=== PATIENT | male | born 1950 | race African-American/Black ===

== ENCOUNTER 2016-12-12 05:58 | Day surgery (SDC) | payer MEDICARE, MEDICAID ==
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
[~2016-12-12] VITALS: Ht 175.3 cm; Wt 104.3 kg
[2016-12-12] VITALS (12 sets, daily range): BP systolic 110–169; BP diastolic 68–98
[~2016-12-12 05:58] MED LIST: VENTOLIN HFA18 GM INH
[2016-12-12] MEDS ORDERED: Pred Forte 1% Opth Susp 1ml LEFT EYE SCH (06:00)
[2016-12-12] MEDS: Gatifloxacin Opth Solution 0.5% LEFT EYE SCH ×3 (06:00→06:10)
--- NOTE | 2016-12-12 06:36 | Pre-Procedure Note/Attestation ---
Pre-Procedure Note/Attestation Complete Prior to Procedure Planned Procedure: left Procedure Narrative: PPV, Endolaser, possible scleral buckle, gas-fluid exchange L eye Indications for Procedure Pre-Operative Diagnosis: Retinal detachment L eye Attestation I attest that I discussed the nature of the procedure; its benefits; risks and complications; and alternatives (and the risks and benefits of such alternatives ), prior to the procedure, with the patient (or the patient's legal sales representative facility services). I attest that, if there was a reasonable possibility of needing a blood transfusion, the patient (or the patient's legal sales representative facility services) was given the [facility] standardized written summary, pursuant to the [place] Blood Safety Act ([place] Health and Safety Code # 1645, as amended). I attest that I re-evaluated the patient just prior to the surgery and that there has been no change in the patient's H&P, except as documented below: CHELITA PANIAGUA December 12, 2016 06:36
[2016-12-12] MEDS ORDERED: Flurbiprofen 0.03% Opth Sol 2.5ml ONE (07:11)
[2016-12-12] MEDS ORDERED: Cyclopentolate 1% Opth Sol ONE (07:11)
[2016-12-12] MEDS ORDERED: Gatifloxacin Opth Solution 0.5% ONE (07:11)
[2016-12-12] MEDS ORDERED: Phenylephrine 2.5% Op Soln ONE (07:12)
[2016-12-12] MEDS: Phenylephrine 2.5% Op Soln LEFT EYE SCH ×3 (07:21→07:47)
[2016-12-12] MEDS: Flurbiprofen 0.03% Opth Sol 2.5ml LEFT EYE SCH ×3 (07:21→07:47)
[2016-12-12] MEDS: Cyclopentolate 1% Opth Sol LEFT EYE SCH ×3 (07:21→07:47)
[2016-12-12 08:11] LABS: BASOPHILS % (AUTO) 3.4 % (0.0-2.0); EOSINOPHILS % (AUTO) 7.5 % (0.0-3.0); LYMPHOCYTES % (AUTO) 34.2 % (20.0-45.0); MEAN CORPUSCULAR HEMOGLOBIN 23.7 PG (27.0-31.0); MEAN CORPUSCULAR HGB CONC 30.4 G/DL (32.0-36.0); MEAN CORPUSCULAR VOLUME 78 FL (80-99); MEAN PLATELET VOLUME 11.3 FL (6.5-10.1); MONOCYTES % (AUTO) 10.2 % (1.0-10.0); NEUTROPHILS % (AUTO) 44.7 % (45.0-75.0); PLATELET COUNT 185 K/UL (150-450); RED BLOOD COUNT 5.45 M/UL (4.70-6.10); RED CELL DISTRIBUTION WIDTH 15.6 % (11.6-14.8); WHITE BLOOD COUNT 4.4 K/UL (4.8-10.8)
[2016-12-12 08:17] LABS: ANION GAP 12 (5-15); CALCIUM 9.2 mg/dL (8.6-10.2); CARBON DIOXIDE 27 mEQ/L (20-30); CHLORIDE 102 mEQ/L (98-107); GLOMERULAR FILTRATION RATE > 60 mL/min (>60); HEMOLYSIS 6; POTASSIUM 4.2 mEQ/L (3.4-4.9); SODIUM 141 mEQ/L (135-145)
[2016-12-12] MEDS ORDERED: Lidocaine 2% MPF 5ml Vial INJ ONE (09:39)
[2016-12-12] MEDS ORDERED: Povidone-Iodine 5% opth solution ONE (09:39)
[2016-12-12] MEDS ORDERED: BSS 15ml BTL ONE (09:39)
[2016-12-12] MEDS ORDERED: Dexamethasone 4mg/ml vial ONE (09:39)
[2016-12-12] MEDS ORDERED: Tetracaine 0.5% Opth Soln ONE (09:39)
[2016-12-12] MEDS ORDERED: BSS 500ml btl ONE (09:39)
[2016-12-12] MEDS ORDERED: Bupivacaine 0.75% 30ml vial INJ ONE (09:39)
[2016-12-12] MEDS ORDERED: EPINEPHrine 1mg/1ml Amp ONE (09:39)
[2016-12-12] MEDS ORDERED: Sodium Hyaluronate 10 mg/ml 0.85ml ONE (09:39)
[2016-12-12] MEDS ORDERED: LR 1000ml ONE (10:00)
[2016-12-12] MEDS ORDERED: fentaNYL 100 mcg/2 mL IV ONE (10:00)
[2016-12-12] MEDS ORDERED: Midazolam 2mg/2ml Inj ONE (10:00)
[2016-12-12] MEDS ORDERED: Propofol 10mg/ml 20ml IV ONE (10:00)
[2016-12-12] MEDS ORDERED: Neosporin Oph Soln 5ml Btl ONE (10:13)
--- NOTE | 2016-12-12 10:47 | Anethesia Preoperative Eval ---
Anesthesia Pre-op PMH/ROS General Date of Evaluation: December 12, 2016 Time of Evaluation: 10:00 Anesthesiologist: sydnee ASA Score: ASA 1 Mallampati Score Class I : Soft palate, uvula, fauces, pillars visible Class II: Soft palate, uvula, fauces visible Class III: Soft palate, base of uvula visible Class IV: Only hard plate visible Mallampati Classification: Class I Allergies: Coded Allergies: CHOCOLATE FLAVOR (Verified Allergy, Severe, ASTHMA, 12/12/16) PEANUT (Verified Allergy, Severe, ASTHMA, 12/12/16) LATEX (Verified Allergy, Unknown, rash, 12/09/16) Past Medical History Cardiovascular: Reports: HTN Anesthesia Pre-op Phys. Exam Physician Exam Last Vital Signs Date Time Temp Pulse Resp B/P Pulse Ox O2 Delivery O2 Flow Rate FiO2 12/12/16 07:05 98.2 18 18 139/70 99 Room Air Anesthesia Pre-op A/P Labs Hematology Test 12/12/16 07:45 White Blood Count 4.4 K/UL (4.8-10.8) L Red Blood Count 5.45 M/UL (4.70-6.10) Hemoglobin 12.9 G/DL (14.2-18.0) L Hematocrit 42.6 % (42.0-52.0) Mean Corpuscular Volume 78 FL (80-99) L Mean Corpuscular Hemoglobin 23.7 PG (27.0-31.0) L Mean Corpuscular Hemoglobin Concent 30.4 G/DL (32.0-36.0) L Red Cell Distribution Width 15.6 % (11.6-14.8) H Platelet Count 185 K/UL (150-450) Mean Platelet Volume 11.3 FL (6.5-10.1) H Neutrophils (%) (Auto) 44.7 % (45.0-75.0) L Lymphocytes (%) (Auto) 34.2 % (20.0-45.0) Monocytes (%) (Auto) 10.2 % (1.0-10.0) H Eosinophils (%) (Auto) 7.5 % (0.0-3.0) H Basophils (%) (Auto) 3.4 % (0.0-2.0) H Chemistry Test 12/12/16 07:45 Sodium Level 141 mEQ/L (135-145) Potassium Level 4.2 mEQ/L (3.4-4.9) Chloride Level 102 mEQ/L (98-107) Carbon Dioxide Level 27 mEQ/L (20-30) Anion Gap 12 (5-15) Blood Urea Nitrogen 10 mg/dL (7-23) Creatinine 1.0 mg/dL (0.7-1.2) Estimat Glomerular Filtration Rate > 60 mL/min (>60) Glucose Level 95 mg/dL (74-106) Calcium Level 9.2 mg/dL (8.6-10.2) Mary Beth Jean-Baptiste MD December 12, 2016 10:47
[2016-12-12] MEDS ORDERED: Midazolam 2mg/2ml Inj IVP PRN (11:00)
--- NOTE | 2016-12-12 11:10 | Immediate Post-Op Evaluation ---
Immediate Post-Op Evalulation Immediate Post-Op Evalulation Procedure: Vitrectomy Date of Evaluation: December 12, 2016 Time of Evaluation: 11:10 Nausea: No Vomiting: No Patient Status: awake Hydration Status: adequate Mary Beth Jean-Baptiste MD December 12, 2016 11:10
--- NOTE | 2016-12-12 11:12 | Brief Operative Note ---
Immediate Post Operative Note Operative Note Chief Complaint: Gladwin in vison L eye Pre-op Diagnosis: Retinal detachment L eye Procedure: PPV, cryo, endolaser 236 spots, gas fluid exchange 24% SF-6, Kenalog injection 2 mg L eye Post-op Diagnosis: Retinal detachment, macula off, L eye. Post-op Diagnosis: same as pre-op Surgeon: Una Anesthesiologist: Marla Anesthesia: general Specimen: none Complications: none Condition: stable Estimated Blood Loss: none Implant(s) used?: No CHELITA PANIAGUA December 12, 2016 11:12
[2016-12-12] MEDS: fentaNYL 100 mcg/2 mL IV PRN ×2 (11:27→11:40)
[2016-12-12] MEDS ORDERED: Kenalog-10 5ml Inj ONE (11:34)
[2016-12-12] MEDS ORDERED: Maxitrol Opth Oint 3.5gm ONE (11:35)
[2016-12-12] MEDS ORDERED: Norco 5mg/325mg tab ORAL PRN (16:01)
--- NOTE | 2016-12-12 23:29 | Operative Note - Dictated ---
DATE OF OPERATION: 12/12/2016 PREOPERATIVE DIAGNOSIS: Retinal detachment, left eye POSTOPERATIVE DIAGNOSIS: Retinal detachment, left eye PROCEDURES: 1. Pars plana vitrectomy. 2. Peripheral cryopexy. 3. Endolaser. 4. Gas fluid exchange. 5. Kenalog injection, left eye. SURGEON: Winston Heart M.D. ENTRY LEVEL: None. ANESTHESIA: Local with sedation. ANESTHESIOLOGIST: Dr. Jean-Baptiste. JUSTIFICATION FOR SURGERY: This 66-year-old gentleman with a history of blurred vision and absent visual field was found to have a retinal detachment associated with large horseshoe tear in the left eye. BRIEF NOTE: The patient was brought to the operative room, placed on operating room table in supine position. After a time-out was performed and agreed upon by the staff and initial monitoring secured by Dr. Jean-Baptiste, he was subjected to general LMA anesthesia. When anesthesia taken effect, retrobulbar and Van Lint blocks were given in the standard way to limit intraoperative need for anesthetic and postoperative pain. He was then prepped and draped in normal manner. A lid speculum inserted into the left eye. Using a 23-gauge trocar system cannulas were placed in all except infranasal quadrant. was secured inferotemporally. With the light pipe inserted, careful scleral depression was done. A sizable horseshoe tear was found at about the level of the equator at the 10 o'clock position. Using gentle cryopexy, this was surrounded by a roughly 6 gentle lesions of cryo. Areas of pigmentation were seen inferiorly and 2 to 3 cryo spots at this site revealed no open breaks. The was removed from the field and vitrectomy was begun posterior to the lens taking care to avoid contact. A central core vitrectomy was done followed by peripheral vitrectomy removing vitreous blood partially detached posterior hyaloid. Vitreous strands dissected clear of the horseshoe tear. Kenalog was used to aid in visualization of the vitreous. This was subsequently removed. An air-fluid exchange was performed followed by additional endolaser surrounding the peripheral tear and cryo lesions. A gas-gas exchange was then performed to about an 85% fill leaving posterior fluid to avoid development of wet folds. At the conclusion of this maneuver, the superior cannulas were removed as was the infusion cannula. The wounds were noted to be self-sealing. The patient was then placed in a face-down position to be followed by right side down positioning for the rest of the evening. A total of 236 lesions were applied. Winston Heart M.D. DR: Bi JOB#: [id number] CC: Winston Heart M.D.; Fax#: [phone] Wheat M.D. ; Fax#: [phone]
--- NOTE | 2016-12-13 15:51 | Cardiology Report ---
APPROVED REPORT EKG Measurement Heart [id number] VT [id number] [id number] Normal sinus rhythm Minimal voltage criteria for LVH, may be normal variant Nonspecific T wave abnormality Abnormal ECG
--- NOTE | 2016-12-13 19:19 | Pre-op HX & Phy Repo 2 SIG ---
DATE OF ADMISSION: 12/12/2016 PRESURGICAL INTERNAL MEDICINE HISTORY AND PHYSICAL REASON FOR EVALUATION: I was asked by Dr. Winston Heart to see this 66-year-old male, who is going for elective surgery on the left eye. The patient has retinal detachment left eye. Please see full ophthalmology history and physical by Dr. Winston Heart. The patient was evaluated. Chart was reviewed. PAST MEDICAL HISTORY/REVIEW OF SYSTEMS: Remarkable for history of bronchial asthma. The patient denies history of chest pain, palpitation or heart attack. No history of hypertension. No stroke or seizures. No history of diabetes mellitus. No thyroid problem. Denies history of GI bleeding, ulcer disease or heartburn. No liver problems. Denies history of anemia or renal failure. PAST SURGICAL HISTORY: Nasal polyps many years ago. FAMILY HISTORY: Mother and father from heart attack. MEDICATIONS: Current medications include Ventolin inhaler with hand-held nebulizer as well and Duo-Neb inhaler. ALLERGIES: To latex, charcoal, peanuts, and orange juice. HABITS: The patient smoked for 40 years and stopped in 1986. Denies alcohol or street drug use. PHYSICAL EXAMINATION: GENERAL: The patient is alert, well-developed and well-nourished male in his 60s. No acute distress. VITAL SIGNS: Blood pressure 169/90, temperature 98.2 degrees, pulse 73, and O2 saturation 99% on room air. SKIN: Dry, clear and warm. No rashes or diaphoresis. LYMPH NODES: Not enlarged. HEENT: Head, normocephalic and atraumatic. Ears, clear. No discharge. Eyes, full description per Dr. Winston Heart. Mouth clear and moist. No dentures. NECK: No jugular vein distention. Carotids are 2+. Trachea midline. No palpable mass. No lymph node enlargement. CHEST: No deformity or asymmetry. LUNGS: Clear. No rales or rhonchi. HEART: Sinus rhythm. No murmur. No ectopy. No S3 or S4. ABDOMEN: Soft. No palpable mass. No rebound. Liver and spleen not enlarged. EXTREMITIES: No edema or varicose veins. No deformity. No calf tenderness. GENITOURINARY: No CVA tenderness. NEUROLOGIC: No tremor. No nystagmus. No asymmetry. LABORATORY AND DIAGNOSTIC DATA: ECG, normal sinus rhythm, 65 per minute, left ventricular hypertrophy, nonspecific T-wave abnormality. The patient did not eat or drink from 6 p.m. last night. Laboratory work pending. IMPRESSION: 1. Retinal detachment, left eye. 2. Bronchial asthma in remission. 3. Left ventricular hypertrophy and nonspecific T-wave abnormalities, asymptomatic. PLAN: Pars plana vitrectomy 23 G air-fluid exchange, Endolaser per Dr. Winston Heart. CONCLUSIONS: The patient's vital signs are stable. EKG showed left ventricular hypertrophy. The patient did not eat or drink from last night. The patient's condition optimized for surgery. Thank you very much Dr. Heart for privilege to participate in presurgical care of this interesting patient. Solange Voss M.D. DR: THEA JOB#: [id number] CC:
== END 2016-12-12 13:18 | disposition home or self-care (01) ==
LOC: SUR 05:58
DX: H33.012 Retinal detachment with single break, left eye (principal); J45.909 Unspecified asthma, uncomplicated; I10 Essential (primary) hypertension; I51.7 Cardiomegaly; Z87.891 Personal history of nicotine dependence; Z79.52 Long term (current) use of systemic steroids; Z91.040 Latex allergy status; Z91.010 Allergy to peanuts; Z91.018 Allergy to other foods; Z91.048 Other nonmedicinal substance allergy status
CPT/HCPCS: 36415; 67108; 80048; 85025; 93005; J0171; J1100; J2250; J2704; J3010; J3301; J3470; J3490; J7120; 94003; 94150